=== PATIENT | male | born 1965 | race Caucasian/White ===

== ENCOUNTER 2018-03-02 09:28 | Day surgery (SDC) | payer OTHER ==
[2018-03-02] MEDS: NS 1,000 ML IV (09:45)
[2018-03-02] MEDS ORDERED: LIDOCAINE 2% INJ 100 MG/5 ML SDV (FOR ANES.) As Ordered (11:14)
[2018-03-02] MEDS ORDERED: PROPOFOL 200 MG/20 ML VIAL As Ordered (11:14)
== END 2018-03-02 12:08 | disposition home or self-care (01) ==
LOC: M OPP 09:28
DX: Z12.11 Encounter for screening for malignant neoplasm of colon (principal); I10 Essential (primary) hypertension; E78.00 Pure hypercholesterolemia, unspecified; F32.9 Major depressive disorder, single episode, unspecified; K21.9 Gastro-esophageal reflux disease without esophagitis; M19.90 Unspecified osteoarthritis, unspecified site; Z79.899 Other long term (current) drug therapy; Z91.018 Allergy to other foods
CPT/HCPCS: 45378

== ENCOUNTER → 2020-08-07 | Outpatient (CLI) | payer OTHER ==
[~2020-08-07] MED LIST: ALBU83IN INH; ASPI81TA86 PO; ATOR40TA75 PO; BAYE81TA10 PO; BUPR150T3 PO; LAMO100T3 PO; LISI10TA15 PO; LISIPOW PO; METHACHOLINE KIT (J7674) INH ONE; PANT40TA29 PO; PROAAER10 INH; SYMB16INH INH; VYVA30CA4 PO; WELLTAB38 PO
--- NOTE | 2020-08-07 10:53 | PFTRPT ---
Visit Date: 08/07/2020 Second ID: [id number] Referring Doctor: Radha Crzu Height: 72.00 Inches Weight: 252.00 Lbs BSA: 2.35 Diagnosis: R06.02 QUALITY: Study of excellent technical quality. PROCEDURE: Under protocol, methacholine was administered. At a dose of 2.5 mg, or 13.875 CDUs, a 32% decline in the FEV1 was noted. PC of 0.56 is significant. Flow rates did return to baseline post-bronchodilator administration. IMPRESSION: Positive methacholine challenge study. MTDD
== END ==
LOC: M CARPUL 09:42
PROVIDERS: ATTEND Nurse Practitioner Adult Health
DX: R06.02 Shortness of breath (principal)
CPT/HCPCS: 94070; J7674

== ENCOUNTER → 2020-09-28 | Outpatient (CLI) | payer OTHER ==
[~2020-09-28] MED LIST changes: -METHACHOLINE KIT (J7674) INH ONE
== END ==
LOC: M LABSMTC 10:53
PROVIDERS: ATTEND Anesthesiology
DX: Z01.812 Encounter for preprocedural laboratory examination (principal); Z20.828 Contact with and (suspected) exposure to other viral communicable diseases

== ENCOUNTER 2020-10-03 07:15 | Day surgery (SDC) | payer OTHER ==
[~2020-10-03] VITALS: Ht 185.4 cm; Wt 113.4 kg
[~2020-10-03 07:15] MED LIST changes: +LIDOCAINE 1% MDV 20ML VIAL SQ PRN; +LR 1,000 ML IV ONE; +ceFAZolin SOD 2 GM in IV 1 EA IV ONE
[2020-10-03] MEDS ORDERED: propofoL 200 MG/20 ML VIAL As Ordered ONE (08:11)
[2020-10-03] MEDS ORDERED: KETAMINE HCL 200 MG/20 ML VIAL As Ordered ONE (08:11)
[2020-10-03] MEDS ORDERED: fentaNYL 100 MCG/2 ML INJECTION (J3010) As Ordered ONE (08:11)
[2020-10-03] MEDS ORDERED: MIDAZOLAM INJ 2MG/2ML VIAL (J2250 PER 1MG) As Ordered ONE (08:11)
[2020-10-03] MEDS ORDERED: GLYCOPYRROLATE INJ 0.2 MG/ML 2 ML VIAL As Ordered ONE (08:11)
[2020-10-03] MEDS ORDERED: ONDANSETRON 4MG/2ML VIAL As Ordered ONE (08:11)
[2020-10-03] MEDS ORDERED: LIDOCAINE 2% 100MG/5ML SDV (FOR ANES.) As Ordered ONE (08:11)
[2020-10-03] MEDS ORDERED: BACITRACIN PWD 50,000 UNITS VIAL As Ordered ONE (08:17)
[2020-10-03] MEDS ORDERED: NEOSPORIN GU IRRIG 20 ML VIAL As Ordered ONE (08:17)
[2020-10-03] MEDS ORDERED: LIDOCAINE 2% MDV 20ML VIAL As Ordered ONE (08:17)
[2020-10-03] MEDS ORDERED: dexameTHASONE 4 MG/ML 1ML VIAL (J1100 PER 1MG) As Ordered ONE (08:17)
[2020-10-03] MEDS ORDERED: BUPIVACAINE HCL 0.5% 30 ML VIAL As Ordered ONE (08:17)
[2020-10-03 11:34] VITALS: BP 147/78
--- NOTE | 2020-10-03 12:14 | REP ---
INDICATION: post op COMPARISON: None. TECHNIQUE: Three portable views left foot. FINDINGS: Metallic hardware appears to be fusing the 2nd and 3rd tarsal/metatarsal joints. There is mild narrowing at those joints. There is an overlying cast. The osseous structures are well-aligned. IMPRESSION: Postsurgical changes as above. Good alignment. <Electronically signed by Chavez Carrasco > 10/03/20 [id number]
--- NOTE | 2020-10-06 10:49 | RO ---
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 PROCEDURE: Excision of exostosis and fusion of the 2nd and 3rd metatarsal cuneiform joints with Arthrex staple fixation, left foot. HEMOSTASIS: Ankle pneumatic tourniquet at 250 mm of mercury for 76 minutes. IRRIGATION: Dilute bacitracin, neomycin, and polymyxin B solution. IMPLANTABLES: Two Arthrex compression enriqueta, an 18 x 18 and an 18 x 15, and DBX putty, approximately 1 mL. SURGEON: Dr. Ronald Bravo, DPM IN CLASSROOM TUTOR: None. DESCRIPTION OF OPERATION: On 10/03/2020, this 55-year-old male was taken from his hospital room to the operating room and placed on the operating table in the supine position. Following the induction of intravenous (IV) sedation and local and regional anesthesia, the left lower extremity was prepped and draped in the usual aseptic manner. Attention was directed to the patient's dorsal aspect of the foot, where there was noted to be a large exostosis on the dorsal surface of his foot. An incision measuring approximately 5 cm was then placed lateral to the dorsalis pedis artery. Dissection was carried down, and care was taken to identify the dorsalis pedis and deep peroneal nerve and retract in a medial direction as well as the extensor digitorum brevis muscle and tendon. Periosteal incision was then made over the exostosis and the remaining of the dissection was carried subperiosteal, and the exposure was then performed over the 2nd and 3rd metatarsal cuneiform joints, and utilizing a curved osteotome the exostosis was resected. This delivered into view the cartilaginous surfaces of the 2nd and 3rd metatarsal cuneiform joints. The cartilage on the 2nd metatarsal cuneiform joint was completely eroded; however, it was roughened with a curette and drilled with a 0.045 wire for more fusion. Similarly, the 3rd metatarsal cuneiform joint was identified. Considerable arthritis was noted in that location. Utilizing curette and osteotome, the cartilage was resected and then drilled with a 0.045 Shanta wire and was irrigated with dilute bacitracin, neomycin, and polymyxin B solution. Utilizing Arthrex compression enriqueta, an 18 x 18 was placed across the 2nd metatarsal cuneiform joint, and an 18 x 15 was placed across the 3rd metatarsal cuneiform joint with good compression noted. Intraoperative C-arm imagery revealed placement of the enriqueta. The 2nd metatarsal staple was slightly medially placed, but good compression and fixation was noted through the 2nd metatarsal. The fusion site was then stressed and was stable in all three cardinal planes. The wound was flushed with copious amounts of dilute bacitracin, neomycin, and polymyxin B solution. Attention was directed toward closure, where the periosteum was coapted and maintained with 2- 0 Monocryl. Subcutaneous tissues were coapted and maintained with 3-0 Monocryl in a simple interrupted-type fashion. Skin incisions were coapted and maintained utilizing 4-0 Prolene in a simple interrupted-type fashion. A sterile compressive dressing was applied after 4 mg of dexamethasone sodium phosphate was instilled along the surgical site. The bandage was constructed of Adaptic, 4 x 4's, 4 x 4 splints, Edson, and Kerlix. A well-molded boot fiberglass cast was then placed with the foot held at a right angle to the leg. Bone was sent for pathology. Upon deflation of the tourniquet, there was instantaneous capillary filling time of digits 1-5 of the patient's left foot. The patient, having apparently tolerated the surgical well, was taken from the OR to the recovery room for further monitoring by the anesthesia department. Postoperative instructions given upon discharge. Patient is to maintain a nonweightbearing attitude for the first 4-6 weeks until the fusion has been noted and consolidating at the fusion site. VINAYAK
== END 2020-10-03 12:28 | disposition home or self-care (01) ==
LOC: M SDC 07:15
PROVIDERS: ATTEND Podiatrist
DX: M19.072 Primary osteoarthritis, left ankle and foot (principal); M25.775 Osteophyte, left foot; I10 Essential (primary) hypertension; E78.5 Hyperlipidemia, unspecified; G47.30 Sleep apnea, unspecified; J45.909 Unspecified asthma, uncomplicated; K21.9 Gastro-esophageal reflux disease without esophagitis; Z79.899 Other long term (current) drug therapy; Z87.820 Personal history of traumatic brain injury; Z91.018 Allergy to other foods
CPT/HCPCS: 28122; 28730; 73630; 76000; 88300; C1713; C1762; J0690; J1100; J2250; J2405; J3010

== ENCOUNTER 2020-11-09 10:39 | Emergency (ER) | payer OTHER ==
[~2020-11-09 10:39] MED LIST changes: -LIDOCAINE 1% MDV 20ML VIAL SQ PRN; -LR 1,000 ML IV ONE; -ceFAZolin SOD 2 GM in IV 1 EA IV ONE
[2020-11-09 11:17] LABS: BASO # 0.1 10^3/uL (0.0-0.2); BASO % 0.6 % (0.0-1.0); EOS # 0.2 10^3/uL (0.0-0.5); EOS % 2.3 % (0.0-3.0); HEMATOCRIT 49.3 % (42.0-52.0); LYMPH # 2.4 10^3/uL (1.5-5.0); LYMPH % 27.8 % (24.0-44.0); MEAN CORPUSCULAR HGB CONC 32.5 g/dl (32.0-36.5); MEAN CORPUSCULAR VOLUME 86.3 fl (80.0-96.0); MONO # 0.9 10^3/uL (0.0-0.8); MONO % 10.1 % (0.0-5.0); NEUTROPHILS # 5.2 10^3/uL (1.5-8.5); NEUTROPHILS % 58.9 % (36.0-66.0); PLATELET COUNT, AUTOMATED 339 10^3/uL (150-450); RED BLOOD COUNT 5.71 10^6/uL (4.30-6.10); WHITE BLOOD COUNT 8.8 10^3/uL (4.0-10.0)
--- NOTE | 2020-11-09 11:31 | REP ---
INDICATION: CHEST PAIN COMPARISON: 05/18/2006 TECHNIQUE: Portable AP view of the chest FINDINGS: The mediastinum and cardiac silhouette are stable and within normal limits for portable technique. The lung cartwright well aerated and essentially clear. A very subtle focus of opacity at the left base may represent trace atelectasis or chronic changes. No consolidation. No effusion. No pneumothorax. IMPRESSION: No acute cardiopulmonary process appreciated. As above. <Electronically signed by Hieu Napoles > 11/09/20 1121
[2020-11-09 11:38] LABS: BLOOD UREA NITROGEN 24 MG/DL (7-18); CALCIUM LEVEL 9.5 MG/DL (8.5-10.1); CARBON DIOXIDE LEVEL 29 MEQ/L (21-32); CHLORIDE LEVEL 103 MEQ/L (98-107); CK-MB VALUE MASS 1.4 NG/ML (<3.6); CPK CREATINE PHOSPHOKINASE 86 U/L (39-308); CREATININE FOR GFR 1.33 MG/DL (0.70-1.30); GLUCOSE, FASTING 95 MG/DL (70-100); MB/CK RELATIVE INDEX 1.63 (< OR =4); POTASSIUM SERUM 4.4 MEQ/L (3.5-5.1); SODIUM LEVEL 139 MEQ/L (136-145); TROPONIN I < 0.02 NG/ML (< 0.10)
[2020-11-09 11:39] LABS: ALBUMIN 3.7 GM/DL (3.2-5.2); BILIRUBIN,DIRECT 0.2 MG/DL (0.0-0.2); BILIRUBIN,TOTAL 0.6 MG/DL (0.2-1.0); TOTAL PROTEIN 7.6 GM/DL (6.4-8.2)
[2020-11-09] MEDS ORDERED: ISOVUE-370 76% 100ML VIAL As Ordered ONE (11:46)
--- NOTE | 2020-11-09 12:09 | REP ---
INDICATION: chest poain, 4 weeks post op, r/o PE COMPARISON: None. TECHNIQUE: Axial contrast enhanced images from the thoracic inlet to the upper abdomen using pulmonary embolus technique with multiplanar re-formations. 75 ml Isovue 370 intravenous contrast material administered without complication. This CT examination was performed using the following dose reduction techniques: Automated exposure control, adjustment of mA and/or kv according to the patient's size, and use of iterative reconstruction technique. FINDINGS: Satisfactory enhancement of the pulmonary vasculature is achieved and no filling defects are identified to suggest pulmonary embolus. Further evaluation of the mediastinum demonstrates normal thoracic aorta, heart and pericardium. The bilateral lung cartwright are well aerated and clear without consolidation pleural effusion or pneumothorax. Tracheobronchial tree is patent. No nodule or mass lesion is identified. No adenopathy noted. Surrounding musculoskeletal structures intact upper abdomen demonstrates small hiatal hernia, normal bilateral adrenal glands and evidence for cholelithiasis. IMPRESSION: No evidence for pulmonary embolus. No acute mediastinal or pleural parenchymal process. <Electronically signed by Hieu Napoles > 11/09/20 [id number]
[2020-11-09 14:19] LABS: CK-MB VALUE MASS < 1.0 NG/ML (<3.6); CPK CREATINE PHOSPHOKINASE 81 U/L (39-308); MB/CK RELATIVE INDEX 1.23 (< OR =4); TROPONIN I < 0.02 NG/ML (< 0.10)
[2020-11-09 15:30] VITALS: BP 122/80
--- NOTE | 2020-11-10 05:34 | ECGEPIP ---
[facility] - ED Test Date: 2020-11-09 Pat Name: GLORIA RUST Department: Room: - Gender: Male [employer]: : 1965 Requested By: Truong Guerra Order Number: [id number] Reading MD: Truong Joseph Measurements Intervals [place] Rate: 80 P: 24 [place]: 161 QRS: -21 QRSD: 93 T: 18 QT: 371 QTc: 429 Interpretive Statements SINUS RHYTHM POOR R WAVE PROGRESSION BORDERLINE LEFT AXIS DEVIATION NO PRIORS FOR COMPARISON Electronically Signed on 11-10-2020 5:33:53 EST by Truong Joseph
--- NOTE | 2020-11-10 05:41 | ECGEPIP ---
[facility] - ED Test Date: 2020-11-09 Pat Name: GLORIA RUST Department: Room: - Gender: Male [employer]: : 1965 Requested By: Truong Guerra Order Number: [id number] Reading MD: Truong Joseph Measurements Intervals [place] Rate: 77 P: 6 [place]: 155 QRS: -20 QRSD: 96 T: 10 QT: 386 QTc: 437 Interpretive Statements SINUS RHYTHM POOR R WAVE PROGRESSION NONSPECIFIC T WAVE ABNORMALITY(S) SIMILAR TO PRIOR ON SAME DATE Electronically Signed on 11-10-2020 5:41:28 EST by Truong Joseph
== END 2020-11-09 15:45 | disposition home or self-care (01) ==
LOC: M ED 10:39
DX: R07.89 Other chest pain (principal); R06.02 Shortness of breath; J45.909 Unspecified asthma, uncomplicated; I10 Essential (primary) hypertension; E78.5 Hyperlipidemia, unspecified; F33.9 Major depressive disorder, recurrent, unspecified; E66.8 Other obesity; Z79.899 Other long term (current) drug therapy; Z79.82 Long term (current) use of aspirin; Z91.018 Allergy to other foods
CPT/HCPCS: 36415; 71045; 71275; 80048; 80076; 82550; 82553; 83690; 83880; 84484; 85025; 93005; 93041; 94760; 99285; Q9967

== ENCOUNTER → 2020-12-24 | Outpatient (REF) | payer OTHER ==
[~2020-12-24] MED LIST changes: -BUPR150T3 PO; +BUPR150T4 PO
[2020-12-24 16:46] LABS: BASO # 0.1 10^3/uL (0.0-0.2); BASO % 0.7 % (0.0-1.0); EOS # 0.1 10^3/uL (0.0-0.5); EOS % 1.6 % (0.0-3.0); HEMATOCRIT 49.5 % (42.0-52.0); HEMOGLOBIN 16.5 g/dl (13.5-17.5); LYMPH # 2.1 10^3/uL (1.5-5.0); LYMPH % 25.4 % (24.0-44.0); MEAN CORPUSCULAR HEMOGLOBIN 28.9 pg (27.0-33.0); MEAN CORPUSCULAR HGB CONC 33.3 g/dl (32.0-36.5); MEAN CORPUSCULAR VOLUME 86.8 fl (80.0-96.0); MONO # 0.8 10^3/uL (0.0-0.8); MONO % 9.2 % (0.0-5.0); NEUTROPHILS # 5.2 10^3/uL (1.5-8.5); NEUTROPHILS % 62.6 % (36.0-66.0); PLATELET COUNT, AUTOMATED 325 10^3/uL (150-450); WHITE BLOOD COUNT 8.3 10^3/uL (4.0-10.0)
[2020-12-24 16:48] LABS: APPEARANCE, URINE CLEAR (CLEAR); BACTERIA, URINE AUTO NEGATIVE (NEGATIVE); BILIRUBIN, URINE AUTO NEGATIVE (NEGATIVE); BLOOD, URINE BLOOD NEGATIVE (NEGATIVE); COLOR, URINE STRAW (YELLOW); GLUCOSE, URINE (UA) AUTO NEGATIVE (NEGATIVE); KETONE, URINE AUTO NEGATIVE (NEGATIVE); LEUKOCYTE ESTERASE, URINE AUTO NEGATIVE (NEGATIVE); NITRITE, URINE AUTO NEGATIVE (NEGATIVE); PROTEIN, URINE AUTO NEGATIVE (NEGATIVE); RBC, URINE AUTO 0 /HPF (0-3); SPECIFIC GRAVITY URINE AUTO 1.014 (1.002-1.035); SQUAMOUS EPITHELIAL CELL UR AU 0 /HPF (0-6); UROBILINOGEN, URINE AUTO 0.2 mg/dL (0.0-2.0); WBC, URINE AUTO 1 /HPF (0-3)
[2020-12-24 17:09] LABS: CREATININE,RANDOM URINE 72.1 MG/DL; TOTAL PROTEIN,RANDOM URINE 5.5 MG/DL (0.0-12.0)
[2020-12-24 17:19] LABS: BLOOD UREA NITROGEN 29 MG/DL (7-18); C REACTIVE PROTEIN QUANTITATIV 0.86 MG/DL (0.00-0.30); CALCIUM LEVEL 9.3 MG/DL (8.5-10.1); CARBON DIOXIDE LEVEL 29 MEQ/L (21-32); CHLORIDE LEVEL 100 MEQ/L (98-107); COMPLEMENT C3 148 MG/DL (90-180); COMPLEMENT C4 38 MG/DL (10-40); CREATININE FOR GFR 1.34 MG/DL (0.70-1.30); GLOMERULAR FILTRATION RATE 58.5 (>56); GLUCOSE, FASTING 123 MG/DL (70-100); IRON (FE) 73 UG/DL (65-175); MAGNESIUM LEVEL 2.3 MG/DL (1.8-2.4); POTASSIUM SERUM 4.5 MEQ/L (3.5-5.1); RHEUMATOID FACTOR QUANT < 10.0 IU/ML (<15.0); SODIUM LEVEL 137 MEQ/L (136-145); TOTAL PROTEIN 7.3 GM/DL (6.4-8.2)
[2020-12-24 17:20] LABS: TOTAL 25(OH) VITAMIN D 34.8 NG/ML (30.0-100.0); VITAMIN B12 LEVEL 856 PG/ML (247-911)
[2020-12-24 18:32] LABS: ERYTHROCYTE SEDIMENTATION RATE 4 mm/hr (0-20)
[2020-12-25 11:51] LABS: ALBUMIN 4.25 GM/DL (3.29-5.55); ALBUMIN % 58.2 % (55.8-66.1); ALPHA-1-GLOBULINS 0.37 GM/DL (0.17-0.41); ALPHA-2-GLOBULINS 0.85 GM/DL (0.42-0.99); ALPHA-2-GLOBULINS % 11.6 % (7.1-11.8); BETA-1-GLOBULINS % 6.8 % (4.7-7.2); BETA-2-GLOBULINS 0.47 GM/DL (0.19-0.55); BETA-2-GLOBULINS % 6.4 % (3.2-6.5); GAMMA GLOBULINS 0.88 GM/DL (0.65-1.58)
== END ==
LOC: M SFHCRHEU 13:46 → M SFHCADAM 13:48
PROVIDERS: ATTEND Internal Medicine
DX: R53.83 Other fatigue (principal); R76.8 Other specified abnormal immunological findings in serum; M25.40 Effusion, unspecified joint; J34.0 Abscess, furuncle and carbuncle of nose

== ENCOUNTER → 2020-12-24 | Outpatient (CLI) | payer OTHER ==
--- NOTE | 2020-12-24 17:29 | REP ---
INDICATION: CERVICALGIA. COMPARISON: None. TECHNIQUE: AP, lateral, flexion/extension, bilateral oblique, swimmer's, and open-mouth views of the cervical spine FINDINGS: Focal advanced degenerative changes at C6-7 includes bridging osteophyte, endplate sclerosis, and disc space narrowing. Remainder of the examination is essentially age-appropriate. Alignment and lordosis maintained. No acute fracture/compression injury or subluxation. Oblique views demonstrate patent neural foramen. Open mouth view demonstrates normal C1-C2 articulation and odontoid process. IMPRESSION: Focal advanced degenerative changes at C6-7. <Electronically signed by Hieu Napoles > 12/24/20 [id number]
== END ==
LOC: M ADAMS 13:47
PROVIDERS: ATTEND Internal Medicine
DX: M50.323 Other cervical disc degeneration at C6-C7 level (principal)

== ENCOUNTER → 2021-01-15 | Outpatient (REF) | payer OTHER ==
[~2021-01-15] MED LIST changes: +BUPR150T12 PO; -BUPR150T4 PO
[2021-01-17 19:08] LABS: HSV IgM TYPES 1&2 <0.91 Ratio (0.00-0.90)
== END ==
LOC: M SFHCRHEU 12:57
PROVIDERS: ATTEND Internal Medicine
DX: J34.0 Abscess, furuncle and carbuncle of nose (principal); L65.9 Nonscarring hair loss, unspecified

== ENCOUNTER → 2021-01-22 | Outpatient (CLI) | payer OTHER ==
--- NOTE | 2021-01-26 16:25 | SLEEPHOME ---
DATE: 01/22/2021 ORDERED BY: Kassie Vieira MD Diagnostic home sleep testing was performed due to concern for the obstructive sleep apnea syndrome in this patient with a history of fatigue. For testing, a nocturnal T3 respiratory monitoring device was used. Continuous record was made of pulse, oxygen saturation, air flow, chest and abdominal strain, and body position. Nine hours and 59 minutes of data were reviewed. There were 6 hours and 11 minutes marked as time in bed. During the interval marked time in bed, there were 76 respiratory events identified of 10 seconds in duration or greater for a respiratory event index of 12.3. The events were primarily obstructive. However, 130 mixed and central apneas were also seen. Baseline pulse rate was 63 beats per minute. Pulse rate ranged 52 to 93. Baseline saturation was 92%. Saturations fell to 84% and testing was performed in both the supine and nonsupine positions. IMPRESSION: Abnormal home sleep testing with repetitive respiratory events and oxygen desaturations to 84% with a respiratory event index of 12.3 is consistent with the obstructive sleep apnea syndrome. RECOMMENDATION: Given the significant oxygen desaturations and the occurrence of central events, referral for formal sleep evaluation is recommended.
== END ==
LOC: M SLEEP HO 10:13
PROVIDERS: ATTEND Internal Medicine
DX: R53.83 Other fatigue (principal)

== ENCOUNTER → 2021-04-17 | Outpatient (REF) | payer OTHER | LOC: M SFHCRHEU 13:58 | PROVIDERS: ATTEND Internal Medicine | DX: M35.9 Systemic involvement of connective tissue, unspecified (principal) ==

== ENCOUNTER → 2021-09-17 | Outpatient (CLI) | payer OTHER ==
--- NOTE | 2021-09-21 18:10 | SLEEPHOME ---
DATE: 09/17/2021 DATE: 09/17/2021 ORDERED BY: Radha Plaza NP For testing a Nox-T3 respiratory monitoring device was used. Continuous record was made of pulse, oxygen saturation, air flow, chest and abdominal strain and body position. Nine hours and 59 minutes of data were reviewed. There were 5 hours and 49 minutes marked as time in bed. During the interval marked time in bed, there were 28 respiratory events identified of 10 seconds in duration or greater for a respiratory event index of 4.9. The events were both obstructive, mixed and central with 22 mixed and central apneas being scored. Respiratory events were exclusive to the supine posture. Baseline pulse rate was 62. Pulse rate ranged 53 to 88. Baseline saturation was 95%. Saturations fell to 91%. Testing was performed in both the supine and nonsupine positions. IMPRESSION: Equivocal diagnostic home sleep testing with repetitive respiratory events and oxygen desaturations to 91% with a respiratory event index of 4.8 is suggestive of the obstructive sleep apnea syndrome. RECOMMENDATION: Respiratory events were seen only in the supine position and sleep position re-training for avoidance of the supine posture is recommended. cc: SUMMER SAUCEDA MD
== END ==
LOC: M SLEEP HO 12:00
PROVIDERS: ATTEND Nurse Practitioner Adult Health
DX: G47.33 Obstructive sleep apnea (adult) (pediatric) (principal)

== ENCOUNTER → 2021-10-06 | Outpatient (REF) | payer OTHER | LOC: M SFHCRHEU 10:58 → M SFHCADAM 10:58 | PROVIDERS: ATTEND Internal Medicine | DX: M35.9 Systemic involvement of connective tissue, unspecified (principal) ==

== ENCOUNTER → 2023-01-04 | Outpatient (REF) | payer OTHER ==
[~2023-01-04] MED LIST changes: +ALBU2.5V10 INH; -ALBU83IN INH; -LISI10TA15 PO; +LISI10TA24 PO
[2023-01-04 17:08] LABS: BASO # 0.1 10^3/uL (0.0-0.2); BASO % 0.9 % (0.0-1.0); EOS # 0.2 10^3/uL (0.0-0.5); EOS % 3.1 % (0.0-3.0); HEMATOCRIT 49.4 % (42.0-52.0); HEMOGLOBIN 16.4 g/dl (13.5-17.5); LYMPH # 1.9 10^3/uL (1.5-5.0); LYMPH % 29.7 % (24.0-44.0); MEAN CORPUSCULAR HEMOGLOBIN 29.3 pg (27.0-33.0); MEAN CORPUSCULAR HGB CONC 33.2 g/dl (32.0-36.5); MEAN CORPUSCULAR VOLUME 88.4 fl (80.0-96.0); MONO # 0.6 10^3/uL (0.0-0.8); NEUTROPHILS # 3.7 10^3/uL (1.5-8.5); NEUTROPHILS % 56.8 % (36.0-66.0); PLATELET COUNT, AUTOMATED 322 10^3/uL (150-450); RED BLOOD COUNT 5.59 10^6/uL (4.30-6.10); WHITE BLOOD COUNT 6.5 10^3/uL (4.0-10.0)
[2023-01-04 17:10] LABS: APPEARANCE, URINE CLEAR (CLEAR); BACTERIA, URINE AUTO NEGATIVE (NEGATIVE); BILIRUBIN, URINE AUTO NEGATIVE (NEGATIVE); BLOOD, URINE BLOOD NEGATIVE (NEGATIVE); COLOR, URINE YELLOW (YELLOW); GLUCOSE, URINE (UA) AUTO NEGATIVE (NEGATIVE); KETONE, URINE AUTO NEGATIVE (NEGATIVE); LEUKOCYTE ESTERASE, URINE AUTO NEGATIVE (NEGATIVE); MUCUS, URINE SMALL (NEGATIVE); NITRITE, URINE AUTO NEGATIVE (NEGATIVE); PROTEIN, URINE AUTO NEGATIVE (NEGATIVE); RBC, URINE AUTO 0 /HPF (0-3); SPECIFIC GRAVITY URINE AUTO 1.024 (1.002-1.035); SQUAMOUS EPITHELIAL CELL UR AU 0 /HPF (0-6); UROBILINOGEN, URINE AUTO 0.2 mg/dL (0.0-2.0); WBC, URINE AUTO 0 /HPF (0-3)
[2023-01-04 17:30] LABS: TOTAL PROTEIN,RANDOM URINE 12.9 MG/DL (0.0-14.0)
[2023-01-04 17:34] LABS: COMPLEMENT C4 47.7 MG/DL (12-36); IRON (FE) 91 UG/DL (65-175)
[2023-01-04 18:26] LABS: ERYTHROCYTE SEDIMENTATION RATE 19 mm/hr (0-20)
[2023-01-04 18:47] LABS: BLOOD UREA NITROGEN 21 MG/DL (9-23); CALCIUM LEVEL 9.1 MG/DL (8.5-10.1); CARBON DIOXIDE LEVEL 29 MMOL/L (20-31); CHLORIDE LEVEL 102 MMOL/L (98-107); FOLATE 9.86 NG/ML (>5.4); GLUCOSE, FASTING 93 MG/DL (60-100); MAGNESIUM LEVEL 2.2 MG/DL (1.8-2.4); POTASSIUM SERUM 4.5 MMOL/L (3.5-5.1); SODIUM LEVEL 138 MMOL/L (136-145); THYROID STIMULATING HORMONE 1.802 uIU/ML (0.55-4.78); TOTAL 25(OH) VITAMIN D 26.8 NG/ML (20.0-100.0); VITAMIN B12 LEVEL 663 PG/ML (211-911)
[2023-01-04 20:05] LABS: GLOMERULAR FILTRATION RATE > 60.0 (>56)
[2023-01-04 20:10] LABS: CREATININE,RANDOM URINE 186.4 MG/DL
== END ==
LOC: M SFHCRHEU 13:37
PROVIDERS: ATTEND Internal Medicine
DX: R76.8 Other specified abnormal immunological findings in serum (principal); R53.83 Other fatigue; M35.9 Systemic involvement of connective tissue, unspecified

== ENCOUNTER → 2023-01-17 | Outpatient (REF) | payer OTHER | LOC: M SFHCRHEU 14:33 | PROVIDERS: ATTEND Internal Medicine | DX: R53.83 Other fatigue (principal) ==

== ENCOUNTER → 2023-02-07 | Outpatient (CLI) | payer OTHER ==
[~2023-02-07] MED LIST changes: +E-Z-GAS II EFFERVESCENT PACKET (SODIUM BICARB./CITRIC ACID/SIMETHICONE) As Ordered ONE; +E-Z-HD 98% w/w 340GM SUSP BTL As Ordered ONE; +E-Z-PAQUE 96% w/w SUSP 176GM BTL As Ordered ONE
== END ==
LOC: M RAD 09:39
PROVIDERS: ATTEND Physician Assistant Medical
DX: R13.10 Dysphagia, unspecified (principal)

== ENCOUNTER 2023-03-22 11:28 | Day surgery (SDC) | payer OTHER ==
[~2023-03-22] VITALS: Ht 182.9 cm; Wt 114.2 kg
[~2023-03-22 11:28] MED LIST changes: -E-Z-GAS II EFFERVESCENT PACKET (SODIUM BICARB./CITRIC ACID/SIMETHICONE) As Ordered ONE; -E-Z-HD 98% w/w 340GM SUSP BTL As Ordered ONE; -E-Z-PAQUE 96% w/w SUSP 176GM BTL As Ordered ONE; +NS 1,000 ML IV ONE; +OMEP-173 PO
[2023-03-22] MEDS ORDERED: LIDOCAINE 2% 100MG/5ML SDV (FOR ANES.) As Ordered ONE (12:24)
[2023-03-22] MEDS ORDERED: propofoL 200 MG/20 ML VIAL As Ordered ONE ×2 (12:25→13:04)
[2023-03-22] MEDS ORDERED: fentaNYL 100 MCG/2 ML INJECTION As Ordered ONE (12:48)
[2023-03-22 13:46] VITALS: BP 142/78
== END 2023-03-22 13:48 | disposition home or self-care (01) ==
LOC: M OPP 11:28
PROVIDERS: ATTEND Internal Medicine Gastroenterology
DX: K22.89 Other specified disease of esophagus (principal); K22.2 Esophageal obstruction; K44.9 Diaphragmatic hernia without obstruction or gangrene; Z79.899 Other long term (current) drug therapy
CPT/HCPCS: 43239; 43249; 88305; J3010

== ENCOUNTER 2023-08-22 01:34 | Emergency (ER) | payer OTHER ==
[~2023-08-22 01:34] MED LIST changes: -NS 1,000 ML IV ONE
[2023-08-22] MEDS ORDERED: ASPI1TAB22 (01:42)
[2023-08-22] MEDS ORDERED: GABA-282 (01:42)
[2023-08-22] MEDS ORDERED: HYDR200T46 (01:42)
[2023-08-22 02:14] LABS: BASO # 0.1 10^3/uL (0.0-0.2); BASO % 0.7 % (0.0-1.0); EOS # 0.3 10^3/uL (0.0-0.5); EOS % 3.6 % (0.0-3.0); HEMATOCRIT 48.6 % (42.0-52.0); HEMOGLOBIN 16.6 g/dl (13.5-17.5); LYMPH # 2.7 10^3/uL (1.5-5.0); LYMPH % 29.4 % (24.0-44.0); MEAN CORPUSCULAR HEMOGLOBIN 29.9 pg (27.0-33.0); MEAN CORPUSCULAR HGB CONC 34.2 g/dl (32.0-36.5); MEAN CORPUSCULAR VOLUME 87.6 fl (80.0-96.0); MONO # 0.9 10^3/uL (0.0-0.8); MONO % 9.3 % (2.0-8.0); NEUTROPHILS # 5.2 10^3/uL (1.5-8.5); NEUTROPHILS % 56.7 % (36.0-66.0); PLATELET COUNT, AUTOMATED 328 10^3/uL (150-450); RED BLOOD COUNT 5.55 10^6/uL (4.30-6.10); WHITE BLOOD COUNT 9.2 10^3/uL (4.0-10.0)
[2023-08-22] MEDS ORDERED: MORPHINE 4 MG/ML 1ML VIAL IV ONE (03:10)
[2023-08-22] MEDS ORDERED: ISOVUE-370 76% 100ML VIAL As Ordered ONE (03:34)
[2023-08-22 03:36] LABS: BLOOD UREA NITROGEN 29 MG/DL (9-23); CARBON DIOXIDE LEVEL 29 MMOL/L (20-31); CHLORIDE LEVEL 104 MMOL/L (98-107); CK-MB VALUE MASS < 1.0 NG/ML (<3.6); CPK CREATINE PHOSPHOKINASE 64 U/L (46-171); CREATININE FOR GFR 1.08 MG/DL (0.70-1.30); GLOMERULAR FILTRATION RATE > 60.0 (>49); GLUCOSE, FASTING 104 MG/DL (74-106); MB/CK RELATIVE INDEX 1.56 (< OR =4); POTASSIUM SERUM 4.3 MMOL/L (3.5-5.1); SODIUM LEVEL 139 MMOL/L (136-145)
[2023-08-22 03:39] LABS: CK-MB VALUE MASS < 1.0 NG/ML (<3.6)
[2023-08-22 03:45] LABS: CPK CREATINE PHOSPHOKINASE 58 U/L (46-171); MB/CK RELATIVE INDEX 1.72 (< OR =4)
[2023-08-22 03:47] LABS: CALCIUM LEVEL 9.4 MG/DL (8.3-10.6)
[2023-08-22] MEDS ORDERED: HYDROMORPHONE HCL 0.5 MG/ 0.5 ML SYRINGE IV ONE (03:55)
[2023-08-22] MEDS ORDERED: hydrALAZINE 20MG/ML 1ML VIAL IV ONE (03:55)
[2023-08-22 03:59] VITALS: BP 199/107
[2023-08-22 04:16] LABS: ALBUMIN 4.1 G/DL (3.2-5.2); ALKALINE PHOSPHATASE 88 U/L (46-116); ALT/SGPT 17 U/L (7.0-40); AST/SGOT 11 U/L (<34); BILIRUBIN,DIRECT < 0.1 MG/DL (<0.4); BILIRUBIN,TOTAL 0.3 MG/DL (0.3-1.2); TOTAL PROTEIN 7.2 G/DL (5.7-8.2)
[2023-08-22] MEDS ORDERED: FAMOTIDINE 20MG/2ML VIAL IVP ONE (04:45)
[2023-08-22 05:30] VITALS: BP 131/79
[2023-08-22 05:45] VITALS: TEMP 98.1; O2SAT 96
== END 2023-08-22 06:06 | disposition home or self-care (01) ==
LOC: M ED 01:34
DX: I16.0 Hypertensive urgency (principal); R07.89 Other chest pain; R10.13 Epigastric pain; K21.9 Gastro-esophageal reflux disease without esophagitis; G43.909 Migraine, unspecified, not intractable, without status migrainosus; Z91.010 Allergy to peanuts; Z79.899 Other long term (current) drug therapy; Z79.82 Long term (current) use of aspirin
CPT/HCPCS: 71045; 71275; 74177; 80047; 80048; 80076; 82550; 82553; 84484; 85025; 93005; 93041; 94760; 96374; 96375; 99285; J0360; J1170; Q9967; S0028

== ENCOUNTER 2023-08-25 06:58 | Inpatient (IN) | payer OTHER ==
[~2023-08-25] VITALS: Ht 182.9 cm; Wt 114.7 kg
[~2023-08-25 06:58] MED LIST changes: +ASPI1TAB22 PO; +GABA-282 PO; +HYDR200T46 PO
[2023-08-25] MEDS ORDERED: ONDANSETRON 4MG 2ML VIAL IV ONE (08:05)
[2023-08-25] MEDS ORDERED: MORPHINE 4 MG/ML 1ML VIAL IV ONE (08:05)
[2023-08-25] MEDS ORDERED: NS 1,000 ML IV ONE ×2 (08:05→14:05)
[2023-08-25 09:36] LABS: BASO % 0.3 % (0.0-1.0); EOS # 0.2 10^3/uL (0.0-0.5); EOS % 1.6 % (0.0-3.0); HEMATOCRIT 45.6 % (42.0-52.0); HEMOGLOBIN 15.8 g/dl (13.5-17.5); LYMPH # 1.6 10^3/uL (1.5-5.0); LYMPH % 13.7 % (24.0-44.0); MEAN CORPUSCULAR HGB CONC 34.6 g/dl (32.0-36.5); MEAN CORPUSCULAR VOLUME 86.7 fl (80.0-96.0); MONO # 1.2 10^3/uL (0.0-0.8); MONO % 10.1 % (2.0-8.0); NEUTROPHILS # 8.6 10^3/uL (1.5-8.5); PLATELET COUNT, AUTOMATED 317 10^3/uL (150-450); RED BLOOD COUNT 5.26 10^6/uL (4.30-6.10); WHITE BLOOD COUNT 11.7 10^3/uL (4.0-10.0)
[2023-08-25 09:57] LABS: LIPASE 29 U/L (12-53)
[2023-08-25 09:59] LABS: ALBUMIN 3.7 G/DL (3.2-5.2); ALKALINE PHOSPHATASE 107 U/L (46-116); ALT/SGPT 91 U/L (7.0-40); AST/SGOT 16 U/L (<34); BILIRUBIN,DIRECT 0.3 MG/DL (<0.4); BILIRUBIN,TOTAL 0.9 MG/DL (0.3-1.2); BLOOD UREA NITROGEN 14 MG/DL (9-23); CALCIUM LEVEL 9.2 MG/DL (8.3-10.6); CARBON DIOXIDE LEVEL 26 MMOL/L (20-31); CHLORIDE LEVEL 104 MMOL/L (98-107); CK-MB VALUE MASS < 1.0 NG/ML (<3.6); CREATININE FOR GFR 1.06 MG/DL (0.70-1.30); GLOMERULAR FILTRATION RATE > 60.0 (>49); GLUCOSE, FASTING 111 MG/DL (74-106); POTASSIUM SERUM 3.9 MMOL/L (3.5-5.1); SODIUM LEVEL 140 MMOL/L (136-145)
[2023-08-25 10:04] LABS: CPK CREATINE PHOSPHOKINASE 41 U/L (46-171); MB/CK RELATIVE INDEX 2.43 (< OR =4)
[2023-08-25] MEDS: HYDROMORPHONE HCL 0.5 MG/ 0.5 ML SYRINGE IV PRN ×2 (10:41→17:32)
[2023-08-25] MEDS ORDERED: ISOVUE-370 76% 100ML VIAL As Ordered ONE (11:13)
[2023-08-25] MEDS ORDERED: PIPERACILLIN/TAZOBACTAM SOD 4.5 GM in D5W MINI-BAG PLUS 50 ML IV ONE (14:05)
[2023-08-25] MEDS ORDERED: MED REC IN PROGRESS XX SCH (14:25)
[2023-08-25] MEDS ORDERED: MAALOX 30 ML SUSP *UDC PO PRN (15:25)
[2023-08-25] MEDS ORDERED: LR 1,000 ML IV ONE (15:30)
[2023-08-25 17:10] VITALS: BP 184/110; TEMP 99.3; O2SAT 94
[2023-08-25] MEDS ORDERED: D3 H10002 PO (17:29)
[2023-08-25] MEDS: NS 1,000 ML IV SCH (17:32)
[2023-08-25] MEDS ORDERED: HOME MED LIST COMPLETE! XX SCH (17:35)
[2023-08-25 18:08] VITALS: BP 158/98
[2023-08-25] MEDS ORDERED: KETOROLAC 30 MG/ML 1ML VIAL IV ONE (19:45)
[2023-08-25 20:58] VITALS: BP 159/96; TEMP 97.5; O2SAT 96
[2023-08-25] MEDS ORDERED: HEPARIN SOD (PORCINE) 5000UNITS/ML 1ML VIAL/SYRINGE SC SCH (21:00)
[2023-08-25] MEDS: PIPERACILLIN/TAZOBACTAM SOD 4.5 GM in D5W MINI-BAG PLUS 50 ML IV SCH (23:24)
[2023-08-26] MEDS: MORPHINE 2 MG/ML 1ML VIAL IV PRN ×3 (01:01→19:20)
[2023-08-26] MEDS: NS 1,000 ML IV SCH ×3 (05:09→21:54)
[2023-08-26] MEDS ORDERED: MORPHINE 2 MG/ML 1ML VIAL IV ONE (05:50)
[2023-08-26] MEDS: PIPERACILLIN/TAZOBACTAM SOD 4.5 GM in D5W MINI-BAG PLUS 50 ML IV SCH ×3 (05:53→21:58)
[2023-08-26 06:20] LABS: ALKALINE PHOSPHATASE 246 U/L (46-116); ALT/SGPT 205 U/L (7.0-40); AST/SGOT 121 U/L (<34); BILIRUBIN,TOTAL 1.9 MG/DL (0.3-1.2); BLOOD UREA NITROGEN 15 MG/DL (9-23); CALCIUM LEVEL 8.6 MG/DL (8.3-10.6); CARBON DIOXIDE LEVEL 23 MMOL/L (20-31); CHLORIDE LEVEL 104 MMOL/L (98-107); CREATININE FOR GFR 0.87 MG/DL (0.70-1.30); GLOMERULAR FILTRATION RATE > 60.0 (>49); GLUCOSE, FASTING 94 MG/DL (74-106); POTASSIUM SERUM 4.1 MMOL/L (3.5-5.1); SODIUM LEVEL 137 MMOL/L (136-145); TOTAL PROTEIN 5.9 G/DL (5.7-8.2)
[2023-08-26 06:39] VITALS: BP 163/100; TEMP 97.5; O2SAT 96
[2023-08-26 08:07] LABS: HEMATOCRIT 41.7 % (42.0-52.0); HEMOGLOBIN 14.3 g/dl (13.5-17.5); MEAN CORPUSCULAR HEMOGLOBIN 29.7 pg (27.0-33.0); MEAN CORPUSCULAR HGB CONC 34.3 g/dl (32.0-36.5); MEAN CORPUSCULAR VOLUME 86.5 fl (80.0-96.0); PLATELET COUNT, AUTOMATED 298 10^3/uL (150-450); RED BLOOD COUNT 4.82 10^6/uL (4.30-6.10); WHITE BLOOD COUNT 10.3 10^3/uL (4.0-10.0)
[2023-08-26 08:42] LABS: ALKALINE PHOSPHATASE 251 U/L (46-116); ALT/SGPT 202 U/L (7.0-40); AST/SGOT 100 U/L (<34); BILIRUBIN,TOTAL 2.1 MG/DL (0.3-1.2); BLOOD UREA NITROGEN 15 MG/DL (9-23); CALCIUM LEVEL 8.5 MG/DL (8.3-10.6); CARBON DIOXIDE LEVEL 23 MMOL/L (20-31); CHLORIDE LEVEL 105 MMOL/L (98-107); CREATININE FOR GFR 0.91 MG/DL (0.70-1.30); GLOMERULAR FILTRATION RATE > 60.0 (>49); GLUCOSE, FASTING 94 MG/DL (74-106); SODIUM LEVEL 139 MMOL/L (136-145); TOTAL PROTEIN 5.9 G/DL (5.7-8.2)
[2023-08-26 15:30] VITALS: BP 125/78; TEMP 98.6; O2SAT 94
[2023-08-26] MEDS: PANTOPRAZOLE 40MG VIAL IV SCH (15:42)
[2023-08-26] MEDS: lamoTRIgine 100MG TAB PO SCH (15:43)
[2023-08-26] MEDS: OMEPRAZOLE 20MG CAP PO SCH (15:43)
[2023-08-26] MEDS: buPROPion **XL** TABLET 150MG (WELLBUTRIN XL) PO SCH (15:43)
[2023-08-26] MEDS: GABAPENTIN 300 MG CAP PO SCH (15:43)
[2023-08-26] MEDS: HYDROXYCHLOROQUINE 200 MG TAB PO SCH (15:43)
[2023-08-26 22:00] VITALS: BP 126/78; TEMP 98.6; O2SAT 96
[2023-08-27] VITALS (7 sets, daily range): BP systolic 125–138; BP diastolic 73–78; TEMP 97.5–98.2; O2SAT 90–97
[2023-08-27] MEDS: PIPERACILLIN/TAZOBACTAM SOD 4.5 GM in D5W MINI-BAG PLUS 50 ML IV SCH ×3 (05:35→23:05)
[2023-08-27] MEDS: NS 1,000 ML IV SCH ×3 (05:35→21:06)
[2023-08-27 08:08] LABS: BASO % 0.5 % (0.0-1.0); EOS # 0.3 10^3/uL (0.0-0.5); EOS % 3.5 % (0.0-3.0); HEMOGLOBIN 13.3 g/dl (13.5-17.5); LYMPH # 1.5 10^3/uL (1.5-5.0); MEAN CORPUSCULAR HEMOGLOBIN 29.8 pg (27.0-33.0); MEAN CORPUSCULAR HGB CONC 34.1 g/dl (32.0-36.5); MEAN CORPUSCULAR VOLUME 87.4 fl (80.0-96.0); MONO # 0.9 10^3/uL (0.0-0.8); MONO % 11.2 % (2.0-8.0); NEUTROPHILS # 5.4 10^3/uL (1.5-8.5); NEUTROPHILS % 66.1 % (36.0-66.0); PLATELET COUNT, AUTOMATED 276 10^3/uL (150-450); RED BLOOD COUNT 4.46 10^6/uL (4.30-6.10); WHITE BLOOD COUNT 8.2 10^3/uL (4.0-10.0)
[2023-08-27] MEDS: OMEPRAZOLE 20MG CAP PO SCH (08:33)
[2023-08-27] MEDS: HYDROXYCHLOROQUINE 200 MG TAB PO SCH (08:33)
[2023-08-27] MEDS: PANTOPRAZOLE 40MG VIAL IV SCH (08:33)
[2023-08-27] MEDS: GABAPENTIN 300 MG CAP PO SCH (08:33)
[2023-08-27] MEDS: buPROPion **XL** TABLET 150MG (WELLBUTRIN XL) PO SCH (08:35)
[2023-08-27] MEDS: lamoTRIgine 100MG TAB PO SCH (08:35)
[2023-08-27 08:40] LABS: ALBUMIN 2.7 G/DL (3.2-5.2); ALKALINE PHOSPHATASE 205 U/L (46-116); ALT/SGPT 126 U/L (7.0-40); AST/SGOT 38 U/L (<34); BILIRUBIN,TOTAL 1.3 MG/DL (0.3-1.2); BLOOD UREA NITROGEN 15 MG/DL (9-23); CALCIUM LEVEL 8.3 MG/DL (8.3-10.6); CARBON DIOXIDE LEVEL 27 MMOL/L (20-31); CHLORIDE LEVEL 104 MMOL/L (98-107); CREATININE FOR GFR 0.94 MG/DL (0.70-1.30); GLOMERULAR FILTRATION RATE > 60.0 (>49); GLUCOSE, FASTING 84 MG/DL (74-106); MAGNESIUM LEVEL 2.1 MG/DL (1.8-2.4); POTASSIUM SERUM 3.9 MMOL/L (3.5-5.1); SODIUM LEVEL 139 MMOL/L (136-145); TOTAL PROTEIN 5.5 G/DL (5.7-8.2)
[2023-08-27] MEDS: MORPHINE 2 MG/ML 1ML VIAL IV PRN (08:41)
[2023-08-27] MEDS ORDERED: LIDOCAINE 1% MDV 20ML VIAL As Ordered ONE (12:25)
[2023-08-27] MEDS ORDERED: INDOCYANINE GREEN 25MG VIAL (IC-GREEN) As Ordered ONE (12:26)
[2023-08-27] MEDS ORDERED: ONDANSETRON 4MG 2ML VIAL IV PRN (12:45)
[2023-08-27] MEDS ORDERED: HYDROMORPHONE HCL 0.5 MG/ 0.5 ML SYRINGE IV PRN (12:45)
[2023-08-27] MEDS ORDERED: fentaNYL 100 MCG/2 ML INJECTION IV PRN (12:45)
[2023-08-27] MEDS ORDERED: oxyCODONE 5MG TAB PO PRN (12:45)
[2023-08-27] MEDS ORDERED: LR 1,000 ML IV SCH (12:45)
[2023-08-27] MEDS ORDERED: PHENYLephrine 500MCG 5ML (100MCG/ML) SYRINGE As Ordered ONE (13:28)
[2023-08-27] MEDS ORDERED: LABETALOL 100MG/20ML VIAL As Ordered ONE (13:28)
[2023-08-27] MEDS ORDERED: LIDOCAINE 2% 100MG/5ML SDV (FOR ANES.) As Ordered ONE (13:29)
[2023-08-27] MEDS ORDERED: MIDAZOLAM INJ 2MG/2ML VIAL As Ordered ONE (13:29)
[2023-08-27] MEDS ORDERED: propofoL 200 MG/20 ML VIAL As Ordered ONE (13:29)
[2023-08-27] MEDS ORDERED: ONDANSETRON 4MG 2ML VIAL As Ordered ONE (13:29)
[2023-08-27] MEDS ORDERED: ROCURONIUM BROMIDE 50MG/5ML VIAL As Ordered ONE (13:29)
[2023-08-27] MEDS ORDERED: fentaNYL 250 MCG/5 ML INJECTION As Ordered ONE (13:29)
[2023-08-27] MEDS ORDERED: KETOROLAC 60MG 2ML VIAL As Ordered ONE (13:29)
[2023-08-27] MEDS ORDERED: ACETAMINOPHEN 1000MG 100ML IV BAG As Ordered ONE (13:29)
[2023-08-27] MEDS ORDERED: SUGAMMADEX SODIUM 500 MG/5 ML VIAL (BRIDION) As Ordered ONE (13:30)
[2023-08-27] MEDS ORDERED: fentaNYL 100 MCG/2 ML INJECTION As Ordered ONE (14:51)
[2023-08-27] MEDS ORDERED: NORCO, ANEXSIA 5/325MG TABLET (HYDROcodone/ACETAMINOPHEN) PO PRN ×2 (15:25)
[2023-08-27] MEDS: KETOROLAC 30 MG/ML 1ML VIAL IV SCH (23:03)
[2023-08-28 02:00] VITALS: BP 142/77; TEMP 98.1; O2SAT 91
[2023-08-28] MEDS: NS 1,000 ML IV SCH (04:26)
[2023-08-28 06:00] VITALS: BP 137/85; TEMP 97.5; O2SAT 90
[2023-08-28] MEDS: KETOROLAC 30 MG/ML 1ML VIAL IV SCH (06:11)
[2023-08-28] MEDS: PIPERACILLIN/TAZOBACTAM SOD 4.5 GM in D5W MINI-BAG PLUS 50 ML IV SCH (06:12)
[2023-08-28 07:02] LABS: BASO % 0.3 % (0.0-1.0); EOS % 0.3 % (0.0-3.0); HEMATOCRIT 39.3 % (42.0-52.0); HEMOGLOBIN 13.4 g/dl (13.5-17.5); LYMPH # 0.9 10^3/uL (1.5-5.0); LYMPH % 7.7 % (24.0-44.0); MEAN CORPUSCULAR HEMOGLOBIN 29.6 pg (27.0-33.0); MEAN CORPUSCULAR HGB CONC 34.1 g/dl (32.0-36.5); MEAN CORPUSCULAR VOLUME 86.8 fl (80.0-96.0); MONO % 8.6 % (2.0-8.0); NEUTROPHILS # 9.3 10^3/uL (1.5-8.5); NEUTROPHILS % 82.3 % (36.0-66.0); PLATELET COUNT, AUTOMATED 334 10^3/uL (150-450); RED BLOOD COUNT 4.53 10^6/uL (4.30-6.10); WHITE BLOOD COUNT 11.2 10^3/uL (4.0-10.0)
[2023-08-28 07:24] LABS: ALBUMIN 2.9 G/DL (3.2-5.2); ALKALINE PHOSPHATASE 188 U/L (46-116); ALT/SGPT 113 U/L (7.0-40); AST/SGOT 35 U/L (<34); BILIRUBIN,TOTAL 0.6 MG/DL (0.3-1.2); BLOOD UREA NITROGEN 13 MG/DL (9-23); CALCIUM LEVEL 8.4 MG/DL (8.3-10.6); CARBON DIOXIDE LEVEL 27 MMOL/L (20-31); CHLORIDE LEVEL 106 MMOL/L (98-107); CREATININE FOR GFR 0.85 MG/DL (0.70-1.30); GLOMERULAR FILTRATION RATE > 60.0 (>49); GLUCOSE, FASTING 122 MG/DL (74-106); MAGNESIUM LEVEL 2.4 MG/DL (1.8-2.4); POTASSIUM SERUM 4.1 MMOL/L (3.5-5.1); SODIUM LEVEL 141 MMOL/L (136-145); TOTAL PROTEIN 6.1 G/DL (5.7-8.2)
[2023-08-28] MEDS ORDERED: HEPARIN SOD (PORCINE) 5000UNITS/ML 1ML VIAL/SYRINGE SC SCH (09:00)
[2023-08-28] MEDS: GABAPENTIN 300 MG CAP PO SCH (09:19)
[2023-08-28] MEDS: PANTOPRAZOLE 40MG VIAL IV SCH (09:19)
[2023-08-28] MEDS: buPROPion **XL** TABLET 150MG (WELLBUTRIN XL) PO SCH (09:19)
[2023-08-28 09:20] VITALS: BP 149/85
[2023-08-28] MEDS: lamoTRIgine 100MG TAB PO SCH (09:20)
[2023-08-28] MEDS: HYDROXYCHLOROQUINE 200 MG TAB PO SCH (09:20)
[2023-08-28] MEDS: OMEPRAZOLE 20MG CAP PO SCH (09:20)
[2023-08-28 09:52] VITALS: BP 144/85; TEMP 97.7; O2SAT 92
[2023-08-28] MEDS ORDERED: CIPR-249 PO (12:30)
[2023-08-28] MEDS ORDERED: METR-265 PO (12:30)
[2023-08-28] MEDS ORDERED: PERC7.5T11 PO (12:30)
[2023-08-28] MEDS ORDERED: SENO8.6T10 PO (12:30)
[2023-08-28] MEDS ORDERED: AMLO1TAB25 PO (12:36)
[2023-08-28 14:43] VITALS: BP 137/85; TEMP 98.1; O2SAT 90
== END 2023-08-28 15:15 | disposition home or self-care (01) | DRG 710 ==
LOC: M ED 06:58 → M ED INP 15:22 → M MS5PR 17:18
PROVIDERS: ADMIT Student in an Organized Health Care Education/Training Program; ATTEND Student in an Organized Health Care Education/Training Program
PROC: 8E0W4CZ Robotic Assisted Procedure of Trunk Region, Percutaneous Endoscopic Approach (ICD-10-PCS; 2023-08-27)
PROC: BF52200 Other Imaging of Gallbladder using Fluorescing Agent, Indocyanine Green Dye, Intraoperative (ICD-10-PCS; 2023-08-27)
PROC: 0FT44ZZ Resection of Gallbladder, Percutaneous Endoscopic Approach (ICD-10-PCS; principal; 2023-08-27 10:00)
DX: A41.9 Sepsis, unspecified organism (principal); K82.1 Hydrops of gallbladder; K80.00 Calculus of gallbladder with acute cholecystitis without obstruction; L94.9 Localized connective tissue disorder, unspecified; F41.9 Anxiety disorder, unspecified; F32.A Depression, unspecified; J45.909 Unspecified asthma, uncomplicated; E78.5 Hyperlipidemia, unspecified; M54.50 Low back pain, unspecified; G89.29 Other chronic pain; Z79.82 Long term (current) use of aspirin; Z79.899 Other long term (current) drug therapy; Z91.018 Allergy to other foods; R16.0 Hepatomegaly, not elsewhere classified

== ENCOUNTER → 2024-07-18 | Outpatient (REF) | payer OTHER ==
[~2024-07-18] MED LIST changes: +AMLO1TAB25 PO; +CIPR-249 PO; +D3 H10002 PO; +METR-265 PO; +PERC7.5T11 PO; +SENO8.6T10 PO
== END ==
LOC: M SFHCADAM 10:26
PROVIDERS: ATTEND Physician Assistant
DX: R39.11 Hesitancy of micturition (principal)
CPT/HCPCS: 87086; G0103

== ENCOUNTER → 2024-09-13 | Outpatient (CLI) | payer OTHER ==
[~2024-09-13] MED LIST changes: +GABA-1172 PO; -GABA-282 PO
== END ==
LOC: M ADAMS 15:04
PROVIDERS: ATTEND Physician Assistant Medical
DX: J40 Bronchitis, not specified as acute or chronic (principal)

== ENCOUNTER → 2024-09-13 | Outpatient (REF) | payer OTHER | LOC: M SFHCADAM 16:52 | PROVIDERS: ATTEND Physician Assistant Medical | DX: R05.1 Acute cough (principal) ==

== ENCOUNTER → 2024-09-21 | Outpatient (CLI) | payer OTHER | LOC: M ADAMS 09:02 | PROVIDERS: ATTEND Physician Assistant | DX: J22 Unspecified acute lower respiratory infection (principal) ==

== ENCOUNTER → 2024-10-10 | Outpatient (REF) | payer OTHER ==
[2024-10-10 17:00] LABS: C REACTIVE PROTEIN QUANTITATIV 0.5 MG/DL (<1.0)
[2024-10-10 17:01] LABS: BASO # 0.1 10^3/uL (0.0-0.2); EOS # 0.3 10^3/uL (0.0-0.5); EOS % 4.6 % (0.0-3.0); HEMATOCRIT 49.1 % (42.0-52.0); HEMOGLOBIN 16.5 g/dl (13.5-17.5); LYMPH # 1.8 10^3/uL (1.5-5.0); LYMPH % 26.4 % (24.0-44.0); MEAN CORPUSCULAR HEMOGLOBIN 29.1 pg (27.0-33.0); MEAN CORPUSCULAR HGB CONC 33.6 g/dl (32.0-36.5); MEAN CORPUSCULAR VOLUME 86.6 fl (80.0-96.0); MONO # 0.7 10^3/uL (0.0-0.8); MONO % 10.1 % (2.0-8.0); NEUTROPHILS % 57.6 % (36.0-66.0); PLATELET COUNT, AUTOMATED 286 10^3/uL (150-450); RED BLOOD COUNT 5.67 10^6/uL (4.30-6.10)
[2024-10-10 17:02] LABS: COMPLEMENT C3 192.9 MG/DL (90.0-170.0); COMPLEMENT C4 42.4 MG/DL (12-36)
[2024-10-10 17:07] LABS: TOTAL 25(OH) VITAMIN D 36.3 NG/ML (20.0-100.0)
[2024-10-10 17:41] LABS: APPEARANCE, URINE CLEAR (CLEAR); BACTERIA, URINE AUTO NEGATIVE (NEGATIVE); BILIRUBIN, URINE AUTO NEGATIVE (NEGATIVE); BLOOD, URINE BLOOD NEGATIVE (NEGATIVE); COLOR, URINE YELLOW (YELLOW); GLUCOSE, URINE (UA) AUTO NEGATIVE (NEGATIVE); KETONE, URINE AUTO NEGATIVE (NEGATIVE); LEUKOCYTE ESTERASE, URINE AUTO NEGATIVE (NEGATIVE); NITRITE, URINE AUTO NEGATIVE (NEGATIVE); PROTEIN, URINE AUTO NEGATIVE (NEGATIVE); RBC, URINE AUTO 0 /HPF (0-3); SPECIFIC GRAVITY URINE AUTO 1.014 (1.002-1.035); SQUAMOUS EPITHELIAL CELL UR AU 0 /HPF (0-6); UROBILINOGEN, URINE AUTO 0.2 mg/dL (0.0-2.0); WBC, URINE AUTO 0 /HPF (0-3)
[2024-10-10 17:44] LABS: ERYTHROCYTE SEDIMENTATION RATE 11 mm/hr (0-20)
[2024-10-10 17:54] LABS: CREATININE,RANDOM URINE 84.7 MG/DL
== END ==
LOC: M SFHCRHEU 12:28
PROVIDERS: ATTEND Internal Medicine
DX: R76.8 Other specified abnormal immunological findings in serum (principal); M35.9 Systemic involvement of connective tissue, unspecified; Z79.899 Other long term (current) drug therapy

== ENCOUNTER → 2024-11-21 | Outpatient (REF) | payer OTHER ==
[2024-11-21 18:53] LABS: BASO # 0.1 10^3/uL (0.0-0.2); EOS # 0.3 10^3/uL (0.0-0.5); EOS % 4.5 % (0.0-3.0); HEMATOCRIT 51.3 % (42.0-52.0); HEMOGLOBIN 17.1 g/dl (13.5-17.5); LYMPH # 1.9 10^3/uL (1.5-5.0); MEAN CORPUSCULAR HEMOGLOBIN 29.3 pg (27.0-33.0); MEAN CORPUSCULAR HGB CONC 33.3 g/dl (32.0-36.5); MONO # 0.7 10^3/uL (0.0-0.8); MONO % 10.1 % (2.0-8.0); NEUTROPHILS # 4.3 10^3/uL (1.5-8.5); PLATELET COUNT, AUTOMATED 317 10^3/uL (150-450); RED BLOOD COUNT 5.83 10^6/uL (4.30-6.10); WHITE BLOOD COUNT 7.4 10^3/uL (4.0-10.0)
[2024-11-21 19:14] LABS: ALBUMIN 3.9 G/DL (3.2-5.2); ALKALINE PHOSPHATASE 93 U/L (40-129); ALT/SGPT 24 U/L (7.0-40); AST/SGOT 14 U/L (<34); BILIRUBIN,TOTAL 0.6 MG/DL (0.3-1.2); BLOOD UREA NITROGEN 21 MG/DL (9-23); CALCIUM LEVEL 10.3 MG/DL (8.3-10.6); CARBON DIOXIDE LEVEL 32 MMOL/L (20-31); CHLORIDE LEVEL 101 MMOL/L (98-107); CHOLESTEROL LEVEL 265 MG/DL (<200); CHOLESTEROL RISK RATIO 4.46 (<5); CREATININE FOR GFR 1.08 MG/DL (0.70-1.30); GLOMERULAR FILTRATION RATE > 60.0 (>49); GLUCOSE, FASTING 96 MG/DL (74-106); HDL CHOLESTEROL 59.3 MG/DL (>40); LDL CHOLESTEROL 177.7 MG/DL (<100); NON-HDL-C 205.7 MG/DL; POTASSIUM SERUM 5.4 MMOL/L (3.5-5.1); SODIUM LEVEL 140 MMOL/L (136-145); TOTAL PROTEIN 7.4 G/DL (5.7-8.2); TRIGLYCERIDES LEVEL 140 MG/DL (<150)
[2024-11-21 19:16] LABS: FREE T4 1.47 NG/DL (0.89-1.76); THYROID STIMULATING HORMONE 2.861 uIU/ML (0.55-4.78)
[2024-11-21 19:17] LABS: FREE T3 3.2 PG/ML (2.3-4.2)
[2024-11-21 19:27] LABS: HEMOGLOBIN A1c 5.7 % (4.0-6.0)
== END ==
LOC: M SFHCADAM 12:46
PROVIDERS: ATTEND Physician Assistant
DX: M35.9 Systemic involvement of connective tissue, unspecified (principal); F33.1 Major depressive disorder, recurrent, moderate; M17.0 Bilateral primary osteoarthritis of knee; Z82.49 Family history of ischemic heart disease and other diseases of the circulatory system; Z12.5 Encounter for screening for malignant neoplasm of prostate

== ENCOUNTER → 2025-05-21 | Outpatient (CLI) | payer OTHER ==
[2025-05-21 16:17] LABS: ALT/SGPT 30.0 U/L (7.0-40); AST/SGOT 22.0 U/L (<34); CALCIUM LEVEL 9.7 MG/DL (8.3-10.6); CARBON DIOXIDE LEVEL 30.0 MMOL/L (20-31); CHLORIDE LEVEL 104.0 MMOL/L (98-107); CHOLESTEROL LEVEL 158.0 MG/DL (<200); CHOLESTEROL RISK RATIO 2.74 (<5); CREATININE FOR GFR 1.2 MG/DL (0.70-1.30); GLOMERULAR FILTRATION RATE 68.4 (>49); LDL CHOLESTEROL 82.2 MG/DL (<100); NON-HDL-C 100.4 MG/DL; POTASSIUM SERUM 4.9 MMOL/L (3.5-5.1); SODIUM LEVEL 139.0 MMOL/L (136-145); TOTAL 25(OH) VITAMIN D 50.4 NG/ML (20.0-100.0); TRIGLYCERIDES LEVEL 91.0 MG/DL (<150)
[2025-05-21 16:18] LABS: FREE T4 1.34 NG/DL (0.89-1.76)
[2025-05-21 17:18] LABS: ESTIMATED AVERAGE GLUCOSE 114.0 MG/DL (60-110)
== END ==
LOC: M PLALAB 12:19
PROVIDERS: ATTEND Physician Assistant
DX: F33.1 Major depressive disorder, recurrent, moderate (principal)

== ENCOUNTER → 2025-07-04 | Outpatient (CLI) | payer OTHER | LOC: M RAD 13:45 | PROVIDERS: ATTEND Physician Assistant | DX: R41.3 Other amnesia (principal); G31.9 Degenerative disease of nervous system, unspecified ==